=== PATIENT | male | born 1990 | race Caucasian/White ===

== ENCOUNTER 2017-08-02 17:50 | Emergency (ER) | payer BC ==
--- NOTE | 2017-08-02 18:17 | UC ---
Throat Pain/Nasal Galdino HPI - HPI Summary HPI Summary: 27 year old male presents with complains of right tonsilar swelling. - History of Current Complaint Stated Complaint: RIGHT SWOLLEN TONSIL Time Seen by Provider: 08/02/17 18:16 Hx Obtained From: Patient Onset/Duration: Sudden Onset Severity: Moderate Pain Scale Used: 0-10 Numeric - 5 Cough: Nonproductive Associated Signs & Symptoms: Positive: Sinus Discomfort, Nasal Discharge Related History: Seasonal Allergies - Allergies/Home Medications Allergies/Adverse Reactions: Allergies Allergy/AdvReac Type Severity Reaction Status Date / Time No Known Allergies Allergy Verified 08/02/17 18:23 PMH/Surg Hx/FS Hx/Imm Hx Previously Healthy: Yes Other History Of: Negative For: Anticoagulant Therapy - Surgical History Surgical History: Yes Surgery Procedure, Year, and Place: APPENDIX AGE 15 - Family History Known Family History: Positive: None - Social History Alcohol Use: Occasionally Substance Use Type: Marijuana - past, not current Smoking Status (MU): Never Smoked Tobacco Type: eCigarettes - occasionally at work Review of Systems Constitutional: Negative Skin: Negative Eyes: Negative ENT: Sore Throat, Nasal Discharge, Sinus Congestion, Sinus Pain/Tenderness Respiratory: Negative Cardiovascular: Negative Gastrointestinal: Negative Genitourinary: Negative Motor: Negative Neurovascular: Negative Musculoskeletal: Negative Neurological: Negative Psychological: Negative All Other Systems Reviewed And Are Negative: Yes Physical Exam Triage Information Reviewed: Yes Vital Signs Reviewed: Yes Eye Exam: Normal ENT: Positive: Pharyngeal erythema, Nasal congestion, Nasal drainage, Tonsillar swelling - right Dental Exam: Normal Neck exam: Normal Neck: Positive: 1 Respiratory Exam: Normal Cardiovascular Exam: Normal Abdominal Exam: Normal Musculoskeletal Exam: Normal Neurological Exam: Normal Psychological Exam: Normal Skin Exam: Normal Throat Pain/Nasal Course/Dx - Differential Dx/Diagnosis Provider Diagnoses: right tonsilar swelling Discharge - Discharge Plan Condition: Stable Disposition: HOME Prescriptions: Clindamycin Cap(NF) [Clindamycin Cap 300 mg Cap(NF)] 300 mg PO Q6H #40 cap LoraTADine TAB(NF) [Claritin 10 MG TAB(NF)] 10 mg PO DAILY #30 tab Magic M W2 Ash/Maal/Nyst/Lido* 5 ml SWISH SPIT QID PRN #120 ml PRN Reason: Pain Methylprednisolone [Medrol Dosepak 4 MG*] 4 mg PO .SEE ELIOT INSTRUCTION #21 tab Patient Education Materials: Tonsillitis (ED) Referrals: Tahir Hameed MD [Medical Doctor] - Additional Instructions: patient request dr hameed for ent
[2017-08-02 18:23] VITALS: BP 120/67
== END 2017-08-02 18:57 | disposition home or self-care (01) ==
LOC: UCCORT 17:50
DX: J35.1 Hypertrophy of tonsils (principal); Z72.0 Tobacco use
CPT/HCPCS: 87070; 87651; 99212; G0463

== ENCOUNTER 2017-08-20 15:58 | Emergency (ER) | payer BC ==
--- NOTE | 2017-08-20 16:38 | UC ---
Throat Pain/Nasal Galdino HPI - HPI Summary HPI Summary: 27 year old male who is welkl know to me presents with continued swollen tonsils. Patient was recently seen by me and referred to ENT. ENT told patient to continue his medication and follow up if needed. - History of Current Complaint Stated Complaint: THROAT COMPLAINT Time Seen by Provider: 08/20/17 16:37 Hx Obtained From: Patient Onset/Duration: Sudden Onset, Lasting Days Severity: Moderate Pain Scale Used: 0-10 Numeric - 7 Cough: Nonproductive Associated Signs & Symptoms: Positive: Dysphagia - Allergies/Home Medications Allergies/Adverse Reactions: Allergies Allergy/AdvReac Type Severity Reaction Status Date / Time No Known Allergies Allergy Verified 08/20/17 16:50 PMH/Surg Hx/FS Hx/Imm Hx Previously Healthy: Yes Other History Of: Negative For: Anticoagulant Therapy - Surgical History Surgical History: Yes Surgery Procedure, Year, and Place: APPENDIX AGE 15 - Family History Known Family History: Positive: None - Social History Alcohol Use: Occasionally Substance Use Type: Marijuana - past, not current Smoking Status (MU): Never Smoked Tobacco Type: eCigarettes - occasionally at work When Did the Patient Quit Smoking/Using Tobacco: 2013 Review of Systems Constitutional: Negative Skin: Negative Eyes: Negative ENT: Sore Throat Respiratory: Negative Cardiovascular: Negative Gastrointestinal: Negative Genitourinary: Negative Motor: Negative Neurovascular: Negative Musculoskeletal: Negative Neurological: Negative Psychological: Negative All Other Systems Reviewed And Are Negative: Yes Physical Exam Triage Information Reviewed: Yes Vital Signs Reviewed: Yes Eye Exam: Normal ENT: Positive: Pharyngeal erythema, Tonsillar swelling Dental Exam: Normal Neck exam: Normal Neck: Positive: 1 Respiratory Exam: Normal Cardiovascular Exam: Normal Abdominal Exam: Normal Musculoskeletal Exam: Normal Neurological Exam: Normal Psychological Exam: Normal Skin Exam: Normal Throat Pain/Nasal Course/Dx - Differential Dx/Diagnosis Provider Diagnoses: tonsillitis Discharge - Discharge Plan Condition: Stable Disposition: HOME Prescriptions: Dexamethasone TAB* [Decadron TAB*] 4 mg PO TID #12 tab Patient Education Materials: Tonsillitis (ED) Referrals: No Primary Care Phys,NOPCP [Primary Care Provider] -
--- OUTSIDE RECORDS SUMMARY | 2017-08-20 16:38 | XMS REPORT ---
:1990 External Reference #:[id number] Author Organization [employer] Address [address] [place] [address] Phone [phone] Care Team Providers Name Role Phone Tahir Whitten M.D. 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 Payers Type Date Identification Numbers Payment Provider Subscriber Commercial Policy Number: [id number] RADHIKA Les Garvin PayID: [id number] [address] [address] [place] [address] Problems Description No Information Family History Date Family Member(s) Problem(s) Comments Father Unknown Mother Unknown Social History Type Date Description Comments Cigarette Use Never Smoked Cigarettes ETOH Use Rare Use Of Alcohol Recreational Drug Use Never Used Drugs Allergies, Adverse Reactions, Alerts Date Description Reaction Status Severity Comments 08/03/2017 NKDA active Medications Medication Date Status Form Strength Qnty SIG Indications Ordering Provider Clindamycin HCL Active Capsules 300mg Unknown /0000 Claritin 00 Active Capsules 10mg 1 by mouth Unknown /0000 every day Methylprednisolone 00 Active TBPK 4mg take as Unknown /0000 directed Magic Mouth Wash Active Liquid 1:1:1 diphenhydra Unknown /0000 mine 12.5/5 : maalox : viscous lidocaine 5 milliliters swish and spit. Vital Signs Date Vital Result Comment 08/03/2017 Weight 179.00 lb Height 67 inches 5'7" BMI (Body Mass Index) 28.0 kg/m2 BP Systolic 127 mmHg BP Diastolic 69 mmHg Heart Rate 80 /min O2 % BldC Oximetry 98 % Body Temperature 99.1 F Pain Level 0 Results Description No Information Procedures Description No Information Plan of Care No Information Available
--- OUTSIDE RECORDS SUMMARY | 2017-08-20 16:38 | XMS REPORT ---
:1990 External Reference #:[id number] Author Organization [employer] Address [address] [place] [address] Phone [phone] Care Team Providers Name Role Phone Tahir Whitten M.D. 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 Vital Signs Date Vital Result Comment 08/13/2017 Weight 182.00 lb Height 67 inches 5'7" BMI (Body Mass Index) 28.5 kg/m2 BP Systolic 143 mmHg BP Diastolic 86 mmHg Heart Rate 98 /min O2 % BldC Oximetry 100 % Body Temperature 98.4 F Pain Level 0 08/03/2017 Weight 179.00 lb Height 67 inches 5'7" BMI (Body Mass Index) 28.0 kg/m2 BP Systolic 127 mmHg BP Diastolic 69 mmHg Heart Rate 80 /min O2 % BldC Oximetry 98 % Body Temperature 99.1 F Pain Level 0 Results Description No Information Procedures Description No Information Encounters Type Date Location Provider CPT E/M Dx Office Visit 08/03/2017 1:45p Main Office Tahir Whitten M.D. 01748 J03.90 J31.0 Plan of Care No Information Available
[2017-08-20 16:50] VITALS: BP 123/63
== END 2017-08-20 17:25 | disposition home or self-care (01) ==
LOC: UCCORT 15:58
DX: J03.90 Acute tonsillitis, unspecified (principal); Z72.89 Other problems related to lifestyle; F12.11 Cannabis abuse, in remission; Z87.891 Personal history of nicotine dependence
CPT/HCPCS: 87651; 99212; G0463

== ENCOUNTER 2017-12-22 17:45 | Emergency (ER) | payer BC ==
[2017-12-22 18:22] VITALS: BP 132/93
--- NOTE | 2017-12-22 18:31 | UC ---
Skin Complaint HPI - HPI Summary HPI Summary: Pt c/o tick bite to left upper posterior shoulder. Tick is still intact. Thinks tick has been attached for just under 24 hours. - History of Current Complaint Chief Complaint: UCSkin Time Seen by Provider: 12/22/17 18:24 Stated Complaint: SKIN COMPLAINT/TICK Hx Obtained From: Patient Onset/Duration: Sudden Onset, Lasting Hours Skin Exposure Onset/Duration: Hours Ago Timing: Constant Onset Severity: Mild Current Severity: Mild Pain Intensity: 0 Location: Discrete Character: Redness Aggravating Factor(s): Touch Alleviating Factor(s): Unknown Associated Signs & Symptoms: Positive: Tenderness Related History: Insect Bite/Sting - Allergy/Home Medications Allergies/Adverse Reactions: Allergies Allergy/AdvReac Type Severity Reaction Status Date / Time No Known Allergies Allergy Verified 12/22/17 18:22 Review of Systems Constitutional: Negative Skin: Other - tick bite Eyes: Negative ENT: Negative Respiratory: Negative Cardiovascular: Negative Gastrointestinal: Negative Genitourinary: Negative Motor: Negative Neurovascular: Negative Musculoskeletal: Negative Neurological: Negative Psychological: Negative Is Patient Immunocompromised?: No All Other Systems Reviewed And Are Negative: Yes PMH/Surg Hx/FS Hx/Imm Hx Previously Healthy: Yes Other History Of: Negative For: Anticoagulant Therapy - Surgical History Surgical History: Yes Surgery Procedure, Year, and Place: APPENDIX AGE 15. left meniscus - Family History Known Family History: Positive: Cardiac Disease - Social History Occupation: Employed Full-time Lives: With Family Alcohol Use: Rare Substance Use Type: Marijuana Smoking Status (MU): Never Smoked Tobacco Type: eCigarettes Have You Smoked in the Last Year: Yes - ecigarettes When Did the Patient Quit Smoking/Using Tobacco: 2013 Physical Exam Triage Information Reviewed: Yes Appearance: Well-Appearing Vital Signs: Initial Vital Signs Temp 99.1 F 12/22/17 18:16 Pulse 76 12/22/17 18:16 Resp 16 12/22/17 18:16 BP 132/93 12/22/17 18:16 Pulse Ox 100 12/22/17 18:16 Vital Signs Reviewed: Yes Eye Exam: Normal ENT: Positive: Hearing grossly normal Respiratory: Positive: No respiratory distress Musculoskeletal Exam: Normal Neurological Exam: Normal Psychological Exam: Normal Skin Exam: Other - tick attached to left upper posterior shoulder whole tick removed with tick twist. Course/Dx - Differential Diagnoses - Skin Complaint Differential Diagnoses: Tick Born Illness - Diagnoses Provider Diagnoses: tick bite. Tick removed Discharge - Sign-Out/Discharge Documenting (check all that apply): Discharge/Admit/Transfer - Discharge Plan Condition: Stable Disposition: HOME Prescriptions: DOXYcycline CAP(*) [DOXYcycline 100MG CAP(*)] 200 mg PO DAILY #2 cap Patient Education Materials: Tick Bite (ED) Referrals: [facility] [place] [facility] REFERR[facility] [Outside] No Primary Care Phys,NOPCP [Primary Care Provider] - - Billing Disposition and Condition Condition: STABLE Disposition: HOME
== END 2017-12-22 18:44 | disposition home or self-care (01) ==
LOC: UCCORT 17:45
DX: S40.262A Insect bite (nonvenomous) of left shoulder, initial encounter (principal); W57.XXXA Bitten or stung by nonvenomous insect and other nonvenomous arthropods, initial encounter; Y92.9 Unspecified place or not applicable; F17.290 Nicotine dependence, other tobacco product, uncomplicated
CPT/HCPCS: 99212; G0463

== ENCOUNTER 2018-01-16 18:16 | Emergency (ER) | payer BC ==
[2018-01-16 18:33] VITALS: BP 144/59
[2018-01-16] MEDS ORDERED: Tetan/Diph/Pertus SYR(Tdap)* 0.5 ML SYR(BOOSTRIX) use SYR IM ONE (18:44)
[2018-01-16] MEDS ORDERED: HYDROcodone/ACETAMIN 5-325 MG* 1 TAB PO ONE ×2 (18:56→19:37)
--- NOTE | 2018-01-16 19:02 | UC ---
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 toe and midfoot occurred about 1PM last Td 7 years ago - History of Current Complaint Chief Complaint: UCLowerExtremity Stated Complaint: LEFT FOOT INJURY/PINKY TOE LAC Time Seen by Provider: 01/16/18 18:37 Hx Obtained From: Patient Onset/Duration: Sudden Onset Severity Initially: Severe Severity Currently: Severe Pain Intensity: 10 Pain Scale Used: 0-10 Numeric Aggravating Factor(s): Standing, Ambulation Alleviating Factor(s): Rest Able to Bear Weight: Yes - Allergies/Home Medications Allergies/Adverse Reactions: Allergies Allergy/AdvReac Type Severity Reaction Status Date / Time No Known Allergies Allergy Verified 01/16/18 18:25 Home Medications: Home Medications Ibuprofen TAB* [Advil TAB*] 200 mg PO Q6H PRN 01/16/18 [History Confirmed ] PMH/Surg Hx/FS Hx/Imm Hx Previously Healthy: Yes Other History Of: Negative For: Anticoagulant Therapy - Surgical History Surgical History: Yes Surgery Procedure, Year, and Place: APPENDIX AGE 15. left meniscus - Family History Known Family History: Positive: Cardiac Disease, Other - MOM has LUPUS - Social History Alcohol Use: None Substance Use Type: None Smoking Status (MU): Never Smoked Tobacco Type: eCigarettes Have You Smoked in the Last Year: Yes - ecigarettes When Did the Patient Quit Smoking/Using Tobacco: 2013 - Immunization History Most Recent Tetanus Shot: OVER 5 YEARS AGO Review of Systems Constitutional: Negative Skin: Negative Eyes: Negative ENT: Negative Respiratory: Negative Cardiovascular: Negative Gastrointestinal: Negative Genitourinary: Negative Motor: Negative Neurovascular: Negative Musculoskeletal: Arthralgia Neurological: Negative Psychological: Negative Is Patient Immunocompromised?: No All Other Systems Reviewed And Are Negative: Yes Physical Exam Triage Information Reviewed: Yes Appearance: Well-Appearing, Well-Nourished, Pain Distress Vital Signs: Initial Vital Signs Temp 99.8 F 01/16/18 18:26 Pulse 87 01/16/18 18:26 Resp 16 01/16/18 18:26 BP 144/59 01/16/18 18:26 Pulse Ox 99 01/16/18 18:26 Vital Signs Reviewed: Yes Eyes: Positive: Conjunctiva Clear ENT: Positive: Hearing grossly normal. Negative: Nasal congestion, Nasal drainage, Trismus, Muffled voice, Hoarse voice Neck: Positive: Supple, Nontender, No Lymphadenopathy Respiratory: Positive: Lungs clear, Normal breath sounds, No respiratory distress, No accessory muscle use Cardiovascular: Positive: RRR, No Murmur Musculoskeletal: Positive: Other: - see image Neurological: Positive: Alert Psychological Exam: Normal Skin Exam: Other - see image Diagnostics - Radiology No standard instances Xray Interpretation: Positive (See Comments) Radiology Interpretation Completed By: Radiologist - REPORT AND IMPRESSION: Grossly nondisplaced fracture through the junction of the proximal metaphysis and proximal diaphysis of the fifth proximal phalanx. On the lateral view there is suggestion of an additional grossly nondisplaced fracture at the base of the distal phalanx which may extend to the articular surface. Diffuse soft tissue swelling along the lateral aspect of the forefoot and fifth to Lower Extremity Course/Dx - Course Course Of Treatment: WOUND FLUSHED WITH 1 LITER NS BY RN. [place] stop reference # [id number]. Parts of this note were dictated with computerized voice recognition software. Unintended dictation errors may remain. Opioid- containing medications can cause drowsiness and sedation. The patient is warned that they should not drive or operate machinery or similar activities while taking this medication. Opioids can also cause a positive drug screen, and can be habit-forming. The patient should follow the instructions exactly and not take any extra medication. Opioid medications should be stored in a secure manner to avoid diversion or theft. Patient should not drink alcohol while taking these medications - Differential Dx/Diagnosis Provider Diagnoses: open left little toe fracture base on proximal phalanx. left foot sprain Discharge - Sign-Out/Discharge Documenting (check all that apply): Discharge/Admit/Transfer - Discharge Plan Condition: Stable Disposition: HOME Prescriptions: Cephalexin CAP* [Keflex CAP*] 500 mg PO QID #28 cap HYDROcodone/ACETAMIN 5-325 MG* [[place] 5-325 TAB*] 1 tab PO Q4H PRN #12 tab MDD 6 PRN Reason: Pain - Severe Patient Education Materials: Crutch Instructions (ED), Toe Fracture (ED) Forms: *Work Release Referrals: Elliot Pavon MD [Medical Doctor] - (CALL IN AM AND ASK FOR FIRST AVAILABLE APPT) Additional Instructions: rest elevate cam boot when up and around crutches ibuprofen 200mg 3-4 4x day with food for pain use narcotics sparing for severe pain no driving or working while taking them YOU HAVE AN AT RISK FRACTURE IT IS OPEN SOAK 2 X DAY IN WARM SOAPY WATER DRY APPLY THIN FILM OF ANTIBIOTIC OINTMENT BANDAID BARTOLO TAPE - Billing Disposition and Condition Condition: STABLE Disposition: HOME Images Feet (Multiple View): 1 - 1 cm long lac/well opposed, 1 mm wide. depth uncertain 2 - swollen/ecchymotic 3 - swollen/tender/ecchymotic
--- NOTE | 2018-01-16 19:35 | RAD ---
Indication: LEFT fifth toe laceration. Comparison: No relevant prior exams available on the [facility] for comparison. Technique: AP, lateral, and oblique views LEFT foot. REPORT AND IMPRESSION: Grossly nondisplaced fracture through the junction of the proximal metaphysis and proximal diaphysis of the fifth proximal phalanx. On the lateral view there is suggestion of an additional grossly nondisplaced fracture at the base of the distal phalanx which may extend to the articular surface. Diffuse soft tissue swelling along the lateral aspect of the forefoot and fifth toe.
[2018-01-16] MEDS ORDERED: Cephalexin CAP* 500 MG PO ONE ×2 (19:36)
== END 2018-01-16 20:25 | disposition home or self-care (01) ==
LOC: UCCORT 18:16
DX: S92.512B Displaced fracture of proximal phalanx of left lesser toe(s), initial encounter for open fracture (principal); S93.602A Unspecified sprain of left foot, initial encounter; X50.9XXA Other and unspecified overexertion or strenuous movements or postures, initial encounter; Y93.89 Activity, other specified; Y92.9 Unspecified place or not applicable; Z23 Encounter for immunization; Z82.49 Family history of ischemic heart disease and other diseases of the circulatory system; Z87.891 Personal history of nicotine dependence
CPT/HCPCS: 90471; 90715; 99214; A9270-GY; G0463

== ENCOUNTER 2018-04-20 17:56 | Emergency (ER) | payer BC ==
[2018-04-20 19:28] VITALS: BP 131/67
--- NOTE | 2018-04-20 20:21 | UC ---
[facility] Dental HPI - HPI Summary HPI Summary: 27-year-old male presents with onset of pain and swelling to the gums of his right lower jaw. Associated with some facial swelling. 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 Tatthomas he most recently completed a course of antibiotics 2-3 weeks ago for a periodontal abscess of his left upper jaw. Denies fever, chills, trismus, or dysphagia. Patient has dental appointment next week already scheduled. - History of Current Complaint Chief Complaint: UCDentalProblem Stated Complaint: TOOTH COMP. Time Seen by Provider: 04/20/18 19:49 Hx Obtained From: Patient Onset/Duration: Gradual Onset - One day ago Severity: Moderate Pain Intensity: 6 Related History: Swelling - Allergies/Home Medications Allergies/Adverse Reactions: Allergies Allergy/AdvReac Type Severity Reaction Status Date / Time No Known Allergies Allergy Verified 01/16/18 18:25 PMH/Surg Hx/FS Hx/Imm Hx - Additional Past Medical History Additional PMH: Noncontributory Previously Healthy: Yes Other History Of: Negative For: Anticoagulant Therapy - Surgical History Surgical History: Yes Surgery Procedure, Year, and Place: APPENDIX AGE 15. left meniscus - Family History Known Family History: Positive: Cardiac Disease, Other - MOM has LUPUS - Social History Occupation: Employed Full-time Lives: With Family Alcohol Use: None Substance Use Type: None Smoking Status (MU): Never Smoked Tobacco Type: eCigarettes Have You Smoked in the Last Year: Yes - ecigarettes When Did the Patient Quit Smoking/Using Tobacco: 2013 - Immunization History Most Recent Tetanus Shot: OVER 5 YEARS AGO Review of Systems Constitutional: Negative Skin: Negative Eyes: Negative ENT: Dental Pain, Other - facial swelling Respiratory: Negative Is Patient Immunocompromised?: No All Other Systems Reviewed And Are Negative: Yes Physical Exam Triage Information Reviewed: Yes Appearance: Well-Appearing, Well-Nourished, Pain Distress - Mildly uncomfortable Vital Signs: Initial Vital Signs Temp 98.4 F 04/20/18 19:20 Pulse 71 04/20/18 19:20 Resp 18 04/20/18 19:20 BP 131/67 04/20/18 19:20 Pulse Ox 100 04/20/18 19:20 Vital Signs Reviewed: Yes Eyes: Positive: Conjunctiva Clear. Negative: Discharge ENT: Positive: TMs normal, Dental tenderness - Endentulous right lower jaw from 2nd bicuspid to molars. There is a tender, erythematous, and edematous area to the periodontium near the location of the 2nd bicuspid consistent with lateral abcess. Mild fluctuance without drainage. No trismus. Airway intact., Uvula midline, Other - Mild facial swelling along right maxilla without erythema. Negative: Pharyngeal erythema, Tonsillar swelling, Tonsillar exudate, Trismus Neck: Positive: Supple, Nontender, No Lymphadenopathy Respiratory: Positive: Lungs clear, Normal breath sounds, No respiratory distress Cardiovascular: Positive: RRR, No Murmur Neurological: Positive: Alert Skin Exam: Normal Dental Complaint Course/Dx - Course Course Of Treatment: 27-year-old male with a history of recurrent periodontal abscesses presents with a one-day history of right facial swelling with area of erythema, tenderness, and swelling to the gums of the right maxillary jaw. Exam reveals a early periodontal abscess near where the second bicuspid would normally reside. No trismus or dysphagia. Airway is intact. Patient has appointment with dentist already scheduled for next week. States he recently completed a dose of antibiotics that he believes was Keflex 2-3 weeks ago for an abscess to the left upper jaw. We will start him on clindamycin 300 mg 3 times a day 10 days. He was encouraged to keep his appointment with his dentist next week for definitive care. - Differential Dx/Diagnosis Differential Diagnosis/Dx: Dental Abscess, Dental Caries, Gingivitis, Peridontic Disease Provider Diagnoses: Dental abscess, elevated blood pressure reading Discharge - Sign-Out/Discharge Documenting (check all that apply): Patient Departure All imaging exams completed and their final reports reviewed: No Studies - Discharge Plan Condition: Stable Disposition: HOME Prescriptions: Clindamycin HCl 300 mg PO TID #30 capsule Patient Education Materials: Dental Abscess (ED) Referrals: No Primary Care Phys,NOPCP [Primary Care Provider] - [facility] [place] [place]Outside] Additional Instructions: Start clindamycin 300 mg orally every 8 hours for 10 days. Be sure to complete the entire prescription even if you are feeling better. Eat a cup of yogurt every day or take a probiotic every day while taking the antibiotic to help prevent stomach upset and diarrhea. Continue to use over the counter acetaminophen (Tylenol) or ibuprofen (Advil, Motrin) according to directions as needed for pain. Use warm salt water rinses several times a day to help encourage drainage. Keep your appointment with your dentist next week for definitive care. Seek immediate medical care in the emergency room if you develop fever greater than 100.5 F, have worsening pain or swelling, are unable to open your mouth, have difficultly swallowing, or difficulty breathing. Your blood pressure in the clinic tonight was mildly elevated. It is recommended that you establish with a primary care provider to have this rechecked. I have provided you with the number for the [facility] to help you arrange for follow up or you may contact one of the local primary care providers in the [facility] from the list provided. - Billing Disposition and Condition Condition: STABLE Disposition: Home
[2018-04-20] MEDS ORDERED: Clindamycin CAP* 150 MG PO ONE (20:30)
== END 2018-04-20 20:44 | disposition home or self-care (01) ==
LOC: UCCORT 17:56
DX: K04.7 Periapical abscess without sinus (principal); R03.0 Elevated blood-pressure reading, without diagnosis of hypertension; Z87.891 Personal history of nicotine dependence
CPT/HCPCS: 99212; A9270-GY; G0463

== ENCOUNTER 2018-09-14 17:47 | Emergency (ER) | payer BC ==
[2018-09-14 18:04] VITALS: BP 138/83
--- NOTE | 2018-09-14 18:30 | UC ---
Throat Pain/Nasal [place] HPI - HPI Summary HPI Summary: 28-year-old male comes in with a chief complaint of sore throat. Gone on the last couple of days. No fever. Hurts to swallow. Pain is less when he does not swallow. No difficulty with breathing. He has noticed white exudates on his uvula and tonsils. He has not tried any ibuprofen. - History of Current Complaint Chief Complaint: UCRespiratory Stated Complaint: ST Time Seen by Provider: 09/14/18 18:13 Pain Intensity: 8 - Allergies/Home Medications Allergies/Adverse Reactions: Allergies Allergy/AdvReac Type Severity Reaction Status Date / Time No Known Allergies Allergy Verified 09/14/18 18:02 PMH/Surg Hx/FS Hx/Imm Hx Previously Healthy: Yes Other History Of: Negative For: Anticoagulant Therapy - Surgical History Surgical History: Yes Surgery Procedure, Year, and Place: APPENDIX AGE 15. left meniscus - Family History Known Family History: Positive: Cardiac Disease, Other - MOM has LUPUS - Social History Alcohol Use: Occasionally Substance Use Type: None Smoking Status (MU): Never Smoked Tobacco Type: eCigarettes Have You Smoked in the Last Year: Yes - ecigarettes When Did the Patient Quit Smoking/Using Tobacco: 2013 - Immunization History Most Recent Tetanus Shot: OVER 5 YEARS AGO Review of Systems All Other Systems Reviewed And Are Negative: Yes Constitutional: Positive: Negative Skin: Positive: Negative Eyes: Positive: Negative ENT: Positive: Sore Throat Respiratory: Positive: Negative Cardiovascular: Positive: Negative Gastrointestinal: Positive: Negative Motor: Positive: Negative Neurovascular: Positive: Negative Musculoskeletal: Positive: Negative Neurological: Positive: Negative Psychological: Positive: Negative Is Patient Immunocompromised?: No Physical Exam Triage Information Reviewed: Yes Appearance: Well-Appearing, No Pain Distress, Well-Nourished Vital Signs: Initial Vital Signs Temp 97.4 F 09/14/18 18:01 Pulse 70 09/14/18 18:01 Resp 16 09/14/18 18:01 BP 138/83 09/14/18 18:01 Pulse Ox 99 09/14/18 18:01 Vital Signs Reviewed: Yes Eye Exam: Normal Eyes: Positive: Conjunctiva Clear ENT: Positive: Pharyngeal erythema, TMs normal, Tonsillar swelling, Tonsillar exudate, Uvula midline, Other - NO PERITONSILLAR SWELLING Neck exam: Normal Neck: Positive: Supple Respiratory: Positive: Lungs clear, Normal breath sounds, No respiratory distress Cardiovascular: Positive: RRR Musculoskeletal Exam: Normal Musculoskeletal: Positive: Strength Intact, ROM Intact Neurological Exam: Normal Neurological: Positive: Alert, Muscle Tone Normal Psychological Exam: Normal Psychological: Positive: Age Appropriate Behavior Skin Exam: Normal Throat Pain/Nasal Course/Dx - Course Course Of Treatment: Due to the swollen tonsils with exudates and the difficulty swallowing we will treat with Augmentin. We discussed viral versus bacterial infections and the role of antibiotics the patient prefers to be an antibiotic at this time. Also with the white patches prescribed nystatin swish and swallow for the possibility of thrush. Patient's to get reevaluated if he gets worse or does not improve. - Differential Dx/Diagnosis Provider Diagnosis: Pharyngitis Discharge - Sign-Out/Discharge Documenting (check all that apply): Patient Departure All imaging exams completed and their final reports reviewed: No Studies - Discharge Plan Condition: Stable Disposition: HOME Prescriptions: Amoxicillin/Clavulanate TAB* [Augmentin TAB 875*] 875 mg PO BID #20 tab Nystatin SUSPENSION ORAL SYR* 500,000 units PO QID #140 ml Patient Education Materials: Pharyngitis (ED) Referrals: [facility] [Outside] Additional Instructions: FOLLOW UP WITH YOUR DOCTOR IF NOT COMPLETELY IMPROVED. GET RECHECKED SOONER WITH ANY WORSENING OF YOUR CONDITION OR QUESTIONS OR CONCERNS. - Billing Disposition and Condition Condition: STABLE Disposition: Home
== END 2018-09-14 18:36 | disposition home or self-care (01) ==
LOC: UCCORT 17:47
DX: J02.9 Acute pharyngitis, unspecified (principal); Z87.891 Personal history of nicotine dependence
CPT/HCPCS: 87651; 99212; G0463

== ENCOUNTER 2019-05-29 18:12 | Emergency (ER) | payer BC ==
--- NOTE | 2019-05-29 19:06 | UC ---
Lower Extremity/Ankle HPI - HPI Summary HPI Summary: 28 yo male presents with LEFT ankle pain. He tells me that 2 days ago he was walking and twisted his left ankle on the curb. Was ambulatory immediately following. Since that time has had mild swelling to his ankle, but pain has resolved. He is ambulatory without assistance. Denies numbness or tingling - History of Current Complaint Stated Complaint: LEFT ANKLE INJURY Time Seen by Provider: 05/29/19 19:06 Hx Obtained From: Patient Onset/Duration: Sudden Onset Severity Initially: Mild Severity Currently: None Pain Intensity: 1 Pain Scale Used: 0-10 Numeric - Allergies/Home Medications Allergies/Adverse Reactions: Allergies Allergy/AdvReac Type Severity Reaction Status Date / Time No Known Allergies Allergy Verified 05/29/19 19:11 Home Medications: Home Medications NK [No Home Medications Reported] 05/29/19 [History Confirmed 05/29/19] PMH/Surg Hx/FS Hx/Imm Hx - Additional Past Medical History Additional PMH: None Other History Of: Negative For: Anticoagulant Therapy - Surgical History Surgical History: Yes Surgery Procedure, Year, and Place: APPENDIX AGE 15. left meniscus - Family History Known Family History: Positive: Cardiac Disease, Other - MOM has LUPUS - Social History Occupation: Employed Full-time Lives: With Family Alcohol Use: Occasionally Substance Use Type: None Smoking Status (MU): Never Smoked Tobacco Type: eCigarettes Have You Smoked in the Last Year: Yes - ecigarettes When Did the Patient Quit Smoking/Using Tobacco: 2013 - Immunization History Most Recent Tetanus Shot: OVER 5 YEARS AGO Review of Systems All Other Systems Reviewed And Are Negative: No Constitutional: Positive: Negative Skin: Positive: Negative Respiratory: Positive: Negative Cardiovascular: Positive: Negative Neurovascular: Positive: Negative Musculoskeletal: Positive: Other: - Left ankle pain Neurological: Positive: Negative Psychological: Positive: Negative Physical Exam - Summary Physical Exam Summary: GENERAL: NAD. WDWN. No pain distress. SKIN: No rashes, sores, lesions, or open wounds. CHEST: No accessory muscle use. Breathing comfortably and in no distress. CV: Pulses intact PT and DP. Cap refill <2seconds MSK: LEFT ANKLE: FROM. NTTP. mild edema about lateral malleolus. Strength 5/5. No obvious bony deformities. Negative talar tilt. No increased laxity. Negative Granby test. NEURO: Alert. Sensations intact and symmetric B/L LEs PSYCH: Age appropriate behavior. Triage Information Reviewed: Yes Vital Signs: Vital Signs: Temp Pulse Resp BP Pulse Ox 98.4 F 67 16 139/56 100 05/29/19 19:05 05/29/19 19:05 05/29/19 19:05 05/29/19 19:05 05/29/19 19:05 Vital Signs Reviewed: Yes Diagnostics - Radiology Ankle XR Radiology Interpretation Completed By: ED Physician Summary of Radiographic Findings: No fx Lower Extremity Course/Dx - Course Course Of Treatment: XR wet read negative for fx. Suspect ankle sprain. Advised to RICE and take tylenol/ibuprofen for discomfort. F/u if symptoms do not improve within 1 week - Differential Dx/Diagnosis Provider Diagnosis: Ankle sprain Discharge ED - Sign-Out/Discharge Documenting (check all that apply): Patient Departure All imaging exams completed and their final reports reviewed: No - Discharge Plan Condition: Stable Disposition: HOME Patient Education Materials: Ankle Sprain (ED) Referrals: Pat Acosta NP [Primary Care Provider] - Additional Instructions: If you develop a fever, shortness of breath, chest pain, new or worsening symptoms - please call your PCP or go to the ED immediately. 1) The X-Ray of your ankle appears normal today 2) As discussed, I suspect this is an ankle sprain and will heal with time, rest , ice, and elevation 3) May take tylenol/ibuprofen as directed for discomfort 4) If your symptoms do not improve within 1 week - please be rechecked - Billing Disposition and Condition Condition: STABLE Disposition: Home - Attestation Statements Provider Attestation: Chart reviewed. Pt not seen by me. I was available for consult. JAQUELINE
[2019-05-29 19:11] VITALS: BP 139/56
--- NOTE | 2019-05-30 08:22 | UC ---
- Progress Note Progress Note: xray report left ankle : FINDINGS: The soft tissues are unremarkable. The bone mineralization is within normal limits. No fracture is identified. Anatomic alignment is maintained. The joint spaces are preserved. IMPRESSION: NO EVIDENCE FOR FRACTURE. Course/Dx - Diagnoses Provider Diagnoses: Ankle sprain Discharge ED - Sign-Out/Discharge Documenting (check all that apply): Patient Departure All imaging exams completed and their final reports reviewed: Yes - Discharge Plan Condition: Stable Disposition: HOME Patient Education Materials: Ankle Sprain (ED) Referrals: Pat Acosta NP [Primary Care Provider] - Additional Instructions: If you develop a fever, shortness of breath, chest pain, new or worsening symptoms - please call your PCP or go to the ED immediately. 1) The X-Ray of your ankle appears normal today 2) As discussed, I suspect this is an ankle sprain and will heal with time, rest , ice, and elevation 3) May take tylenol/ibuprofen as directed for discomfort 4) If your symptoms do not improve within 1 week - please be rechecked - Billing Disposition and Condition Condition: STABLE Disposition: Home
== END 2019-05-29 19:59 | disposition home or self-care (01) ==
LOC: UCCORT 18:12
DX: S93.402A Sprain of unspecified ligament of left ankle, initial encounter (principal); X50.0XXA Overexertion from strenuous movement or load, initial encounter; Y92.9 Unspecified place or not applicable
CPT/HCPCS: 99211; G0463